=== PATIENT | male | born 1970 | race Caucasian/White ===

== ENCOUNTER 2019-10-26 21:17 | Emergency (ER) | payer SELFPAY ==
[~2019-10-26] VITALS: Ht 182.8 cm; Wt 100.0 kg
--- NOTE | 2019-10-26 22:39 | ED Lower Extremity ---
General Chief Complaint: Lower Extremity Stated Complaint: POSS SPRAINED ANKLE Source: patient Exam Limitations: no limitations History of Present Illness Date Seen by Provider: Oct 26, 2019 Time Seen by Provider: 22:37 Onset: just prior to arrival Allergies and Home Medications Allergies Coded Allergies: No Known Drug Allergies (Unverified , 10/26/19) Patient Home Medication List Home Medication List Reviewed: Yes Review of Systems Constitutional: no symptoms reported EENTM: no symptoms reported Respiratory: no symptoms reported Cardiovascular: no symptoms reported Gastrointestinal: no symptoms reported Genitourinary: no symptoms reported Musculoskeletal: see HPI, joint swelling (left ankle ) Skin: no symptoms reported Past Eaupolx-Luyxsv-Uryvwk Hx Past Med/Social Hx: Reviewed Nursing Past Med/Soc Hx Patient Social History Recent Foreign Travel: No Contact w/Someone Who Travel: No Physical Exam Vital Signs Vital Signs - First Documented 10/26/19 22:35 Temp 36.8 Pulse 107 Resp 20 B/P (MAP) 140/88 (105) Pulse Ox 97 O2 Delivery Room Air Capillary Refill : Height, Weight, BMI Height: '" Weight: lbs. oz. kg; BMI Method: General Appearance: WD/WN, no apparent distress Neck: full range of motion, supple Cardiovascular: normal peripheral pulses, regular rate, rhythm Respiratory: lungs clear, normal breath sounds, no respiratory distress Gastrointestinal: non tender, soft Hips: bilateral hip non-tender, bilateral hip normal inspection Legs: bilateral leg non-tender, bilateral leg normal inspection Knees: bilateral knee non-tender, bilateral knee normal inspection Ankles: right ankle non-tender, right ankle normal inspection; left ankle pain, left ankle soft tissue tenderness Feet: bilateral foot non-tender Neurologic/Tendon: normal motor functions Neurologic/Psychiatric: alert, normal mood/affect, oriented x 3 Progress/Results/Core Measures Results/Orders My Orders Orders - ABDIAZIZ OSWALD DO Ankle 3 View Left (10/26/19 22:39) Crutches (10/26/19 22:51) Gel Ankle Brace (10/26/19 22:51) Ketorolac Injection (Toradol Injection) (10/26/19 22:51) Orphenadrine Injection (Norflex Injectio (10/26/19 23:30) Vital Signs/I&O 10/26/19 10/27/19 22:35 00:07 Temp 36.8 37.0 Pulse 107 107 Resp 20 20 B/P (MAP) 140/88 (105) 140/88 (105) Pulse Ox 97 97 O2 Delivery Room Air Room Air Diagnostic Imaging Diagonstic Imaging: Xray Plain Films/CT/US/NM/MRI: ankle Comments Questionable minor bony disruption on the anterior view. I will place patient in the air splint and provide him with crutches. I discussed with him the need to call back tomorrow to see what the radiologist official read is. Also discussed with them if symptoms are not better in 7-10 days he needs a follow-up with primary care or news content specialist for repeat x-ray and recheck of his symptoms Departure Impression Primary Impression: Sprain and strain of ankle Disposition: HOME, SELF-CARE Condition: Stable Departure-Patient Inst. Referrals: NO,LOCAL PHYSICIAN (PCP/Family) Primary Care Physician Patient Instructions: Ankle Sprain (DC) Add. Discharge Instructions: Follow-up in 7-10 days with primary care provider or news content specialist for repeat x-ray if symptoms are not improving. Please call tomorrow for x-ray results from radiologist All discharge instructions reviewed with patient and/or family. Voiced understanding. Work/School Note: Work Release Form Return to Work: Oct 30, 2019 ABDIAZIZ OSWALD DO Oct 26, 2019 22:39
[2019-10-26] MEDS ORDERED: KETOROLAC 60 MG/2 ML VIAL IM STA (22:51)
[2019-10-26] MEDS ORDERED: ORPHENADRINE 60 MG/2 ML (NORFLEX) AMP IM STA (23:30)
[2019-10-27 00:07] VITALS: BP 140/88
--- NOTE | 2019-10-27 06:51 | Diagnostic Imaging Report ---
Clinical indications: Patient states that he missed a step and now has left ankle pain. EXAM: X-ray of the left ankle, 3 views. COMPARISON: None. FINDINGS: There is a nondisplaced fracture involving the lateral malleolus. Ankle mortise and syndesmotic joints otherwise unremarkable. There is a chronic appearing small calcification seen distally adjacent to the medial malleolus. There is degenerative spurring involving the base of 5th metatarsal bone. There is hypertrophic calcaneal spurs at the plantar and Achilles attachment. IMPRESSION: 1. There is a nondisplaced fracture of the lateral malleolus. 2: Degenerative disease of the left foot. Dictated by: Dictated on workstation # [id number]
--- NOTE | 2019-10-27 08:12 | NUR ---
ATTEMPTED TO CALL PT. REGARDING RADIOLOGY READ ON ANKLE X-RAY. NOT ABLE TO REACH PT. USING BOTH NUMBERS LISTED IN DEMOGRAPHICS.
== END 2019-10-27 00:08 | disposition home or self-care (01) ==
LOC: ER FS 21:20
DX: S93.402A Sprain of unspecified ligament of left ankle, initial encounter (principal); X58.XXXA Exposure to other specified factors, initial encounter
CPT/HCPCS: 73610; 96372